=== PATIENT | female | born 1955 | race Caucasian/White ===

== ENCOUNTER 2016-08-25 10:37 | Outpatient (CLI) ==
[2015-04-02 22:22] VITALS: BMI 21.1
--- NOTE | 2016-08-25 11:16 | DI ---
EXAM: Chest two views HISTORY: Cough COMPARISON: None TECHNIQUE: Two views of the chest were performed FINDINGS: Mild bibasilar subsegmental atelectasis. No airspace consolidation. There is no pleural effusion or pneumothorax. The heart is normal in size. The mediastinal contour is normal. There are no acute abnormalities of the bones. IMPRESSION: Mild bibasilar subsegmental atelectasis. No acute cardiopulmonary process.
== END 2016-08-25 10:38 | disposition home or self-care (01) ==
LOC: RAD 10:37
PROVIDERS: ATTEND Family Medicine
DX: R05 Cough (principal); R50.9 Fever, unspecified